=== PATIENT | male | born 1935 | race Caucasian/White ===

== ENCOUNTER 2020-10-28 03:30 | Emergency (ER) | payer MEDICARE ==
[2020-10-28] MEDS ORDERED: Boostrix 0.5 ML (Tdap) VIAL ONE (04:01)
[2020-10-28] MEDS ORDERED: Lidocaine 1% w/Epinephrine 1:100K 30 ML VIAL ONE (04:06)
[2020-10-28] MEDS ORDERED: Bacitracin 1 PK ONE (04:11)
== END 2020-10-28 05:10 | disposition short-term general hospital (02) ==
LOC: NAV ERS 03:30
DX: S12.110A Anterior displaced Type II dens fracture, initial encounter for closed fracture (principal); S01.01XA Laceration without foreign body of scalp, initial encounter; F03.90 Unspecified dementia, unspecified severity, without behavioral disturbance, psychotic disturbance, mood disturbance, and anxiety; Z23 Encounter for immunization; E78.5 Hyperlipidemia, unspecified; I10 Essential (primary) hypertension; I25.2 Old myocardial infarction; I25.10 Atherosclerotic heart disease of native coronary artery without angina pectoris; Z79.899 Other long term (current) drug therapy; W19.XXXA Unspecified fall, initial encounter
CPT/HCPCS: 12001; 70450; 72125; 90471; 90715

== ENCOUNTER 2020-12-15 17:45 | Emergency (ER) | payer OTHER, MEDICARE | END 2020-12-15 20:27 | LOC: NAV ERS 17:45 | DX: S00.03XA Contusion of scalp, initial encounter (principal); I25.2 Old myocardial infarction; E78.5 Hyperlipidemia, unspecified; I10 Essential (primary) hypertension; Z79.899 Other long term (current) drug therapy; X58.XXXA Exposure to other specified factors, initial encounter | CPT/HCPCS: 70450; 72125 ==